=== PATIENT | male | born 1995 | race Two or more races ===

== ENCOUNTER 2017-06-04 11:05 | Inpatient (IN) | payer BC, MEDICAID ==
[~2017-06-04] VITALS: Ht 177.8 cm; Wt 77.2 kg
[2017-06-04] MEDS ORDERED: SODIUM CHLORIDE FLUSH 10ML SYR IVF ONE (11:30)
[2017-06-04] MEDS ORDERED: SODIUM CHLORIDE 0.9% 1,000ML IVBOLUS ONE (11:30)
[2017-06-04] MEDS ORDERED: ALBUTEROL/IPRATROPIUM 2.5MG/0.5MG, 3 ML NPPB ONE (11:30)
[2017-06-04] MEDS ORDERED: ALBUTEROL/IPRATROPIUM 2.5MG/0.5MG, 3 ML ONE (11:38)
[2017-06-04 12:19] LABS: BASOPHILS # (AUTO) 0.03 x10^3/uL (0-0.1); BASOPHILS % (AUTO) 0 % (0-1); EOSINOPHILS # (AUTO) 0.06 x10^3/uL (0-0.4); EOSINOPHILS % (AUTO) 1 % (1-7); LYMPHOCYTES # (AUTO) 0.89 x10^3/uL (1-3.4); LYMPHOCYTES % (AUTO) 10 % (22-44); MD NO; MEAN CORPUSCULAR HEMOGLOBIN 32.2 pg (27.5-34.5); MEAN CORPUSCULAR HGB CONC 34.3 g/dL (33.2-36.2); MEAN CORPUSCULAR VOLUME 93.6 fL (81-97); MEAN PLATELET VOLUME 7.3 fL (7.4-10.4); MONOCYTES # (AUTO) 0.97 x10^3/uL (0.2-0.8); MONOCYTES % (AUTO) 11 % (2-9); NEUTROPHILS # (AUTO) 7.06 x10^3/uL (1.8-6.8); NEUTROPHILS % (AUTO) 78 % (42-75); PLATELET COUNT 238 x10^3/uL (130-400); RED BLOOD COUNT 5.45 x10^6/uL (4.38-5.82); RED CELL DISTRIBUTION WIDTH 12.8 % (9.4-14.8)
[2017-06-04 12:26] LABS: ANION GAP 9 mmol/L (5-15); CALCIUM 9.1 mg/dL (8.5-10.1); CHLORIDE 105 mmol/L (98-107)
[2017-06-04 12:31] LABS: ALANINE AMINOTRANSFERASE 76 U/L (12-78); ALKALINE PHOSPHATASE 82 U/L (45-117); BILIRUBIN,TOTAL 0.7 mg/dL (0.2-1.0); CREATININE 0.17 mg/dL (0.7-1.3); TOTAL PROTEIN 9.1 g/dL (6.4-8.2)
[2017-06-04] MEDS ORDERED: CHOL2000 PO (13:37)
[2017-06-04] MEDS ORDERED: LISI-167 PO (13:38)
[2017-06-04] MEDS ORDERED: AZIT250T PO (13:38)
[2017-06-04] MEDS ORDERED: CARV3.122 PO (13:38)
[2017-06-04] MEDS ORDERED: D5%-0.45% NACL 1,000 ML IV SCH (13:49)
[2017-06-04] MEDS ORDERED: ONDANSETRON ODT 4 MG PO PRN (14:00)
[2017-06-04] MEDS ORDERED: ONDANSETRON 2MG/ML, 2ML IVPush PRN (14:00)
[2017-06-04] MEDS ORDERED: PIPERACILLIN/TAZO 3.375 GM in DEXTROSE 5% 50 ML IV ONE (14:00)
[2017-06-04] MEDS ORDERED: LABETALOL 5MG/ML, 20ML IVPush PRN (14:00)
[2017-06-04] MEDS ORDERED: OXYMETAZOLINE NASAL SPRAY 0.05%, 15ML ONE (14:14)
[2017-06-04] MEDS ORDERED: PIPERACILLIN/TAZO/PMX 3.375GM 50 ML ONE (14:17)
[2017-06-04] MEDS ORDERED: ASPIRIN 300 MG SUPP PR ONE (15:30)
[2017-06-04] MEDS ORDERED: ALBUTEROL SULFATE 2.5 MG/3 ML NPPB PRN (16:00)
[2017-06-04 16:08] LABS: TROPONIN I 0.032 ng/mL (0.000-0.045)
[2017-06-04] MEDS: AMPICILLIN/SULBACTAM 3 GM in SODIUM CHLORIDE 0.9% 100 ML IV SCH ×2 (17:08→23:17)
[2017-06-04] MEDS: ENOXAPARIN 40 MG/0.4 ML SQ SCH (17:20)
[2017-06-04] MEDS ORDERED: GUAI12009 PO (17:31)
[2017-06-04 17:32] VITALS: BP 99/63
[2017-06-04] MEDS: DOXYCYCLINE 100 MG in DEXTROSE 5% 250 ML IV SCH (18:23)
[2017-06-04 19:15] LABS: TROPONIN I 0.057 ng/mL (0.000-0.045)
[2017-06-04] MEDS: ALBUTEROL SULFATE 2.5 MG/3 ML NPPB SCH (20:00)
[2017-06-04 20:07] VITALS: BP 115/81
[2017-06-04] MEDS: D5%-0.45NACL+KCL 20MEQ 1,000 ML IV SCH (20:19)
[2017-06-05 00:39] VITALS: BP 102/67
[2017-06-05 05:21] LABS: BASOPHILS # (AUTO) 0.02 x10^3/uL (0-0.1); BASOPHILS % (AUTO) 0 % (0-1); EOSINOPHILS # (AUTO) 0.02 x10^3/uL (0-0.4); EOSINOPHILS % (AUTO) 0 % (1-7); LYMPHOCYTES # (AUTO) 0.95 x10^3/uL (1-3.4); LYMPHOCYTES % (AUTO) 10 % (22-44); MD NO; MEAN CORPUSCULAR HEMOGLOBIN 32.3 pg (27.5-34.5); MEAN CORPUSCULAR HGB CONC 34.9 g/dL (33.2-36.2); MEAN CORPUSCULAR VOLUME 92.6 fL (81-97); MEAN PLATELET VOLUME 7.4 fL (7.4-10.4); MONOCYTES # (AUTO) 0.99 x10^3/uL (0.2-0.8); MONOCYTES % (AUTO) 11 % (2-9); NEUTROPHILS % (AUTO) 78 % (42-75); PLATELET COUNT 265 x10^3/uL (130-400); RED BLOOD COUNT 4.46 x10^6/uL (4.38-5.82); RED CELL DISTRIBUTION WIDTH 12.8 % (9.4-14.8)
[2017-06-05 05:29] LABS: ALANINE AMINOTRANSFERASE 63 U/L (12-78); ALBUMIN 3.3 g/dL (3.4-5.0); ANION GAP 9 mmol/L (5-15); CALCIUM 8.1 mg/dL (8.5-10.1); CHLORIDE 109 mmol/L (98-107)
[2017-06-05 05:31] LABS: ALKALINE PHOSPHATASE 64 U/L (45-117); BILIRUBIN,TOTAL 0.4 mg/dL (0.2-1.0); CREATININE < 0.15 mg/dL (0.7-1.3); TOTAL PROTEIN 7.6 g/dL (6.4-8.2)
[2017-06-05] MEDS: DOXYCYCLINE 100 MG in DEXTROSE 5% 250 ML IV SCH ×2 (05:31→17:21)
[2017-06-05 05:39] LABS: TROPONIN I 0.088 ng/mL (0.000-0.045)
[2017-06-05] MEDS: AMPICILLIN/SULBACTAM 3 GM in SODIUM CHLORIDE 0.9% 100 ML IV SCH ×4 (06:46→23:43)
[2017-06-05] MEDS: ALBUTEROL SULFATE 2.5 MG/3 ML NPPB SCH ×2 (06:50→11:00)
[2017-06-05 09:24] VITALS: BP 124/61
[2017-06-05] MEDS: D5%-0.45NACL+KCL 20MEQ 1,000 ML IV SCH (10:59)
[2017-06-05 13:55] VITALS: BP 104/71
[2017-06-05 14:55] LABS: CLOSTRIDIUM DIFFICILE ANTIGEN NEGATIVE; CLOSTRIDIUM DIFFICILE TOXIN NEGATIVE (Negative)
[2017-06-05] MEDS ORDERED: ONDANSETRON 2MG/ML, 2ML IVPush PRN (15:26)
[2017-06-05] MEDS: ENOXAPARIN 40 MG/0.4 ML SQ SCH (17:21)
[2017-06-05] MEDS ORDERED: VANCOMYCIN PER PHARMACY MC PRN (18:00)
[2017-06-05] MEDS ORDERED: PHARMACOKINETIC MONITORING MC PRN (18:00)
[2017-06-05] MEDS ORDERED: PHARMACOKINETIC CONSULTATION MC ONE (18:00)
[2017-06-05] MEDS: VANCOMYCIN 1,500 MG in SODIUM CHLORIDE 0.9% 250 ML IV SCH (20:19)
[2017-06-05 20:48] VITALS: BP 102/70
[2017-06-06 03:39] VITALS: BP 91/61
[2017-06-06] MEDS: DOXYCYCLINE 100 MG in DEXTROSE 5% 250 ML IV SCH ×2 (04:21→18:04)
[2017-06-06] MEDS: AMPICILLIN/SULBACTAM 3 GM in SODIUM CHLORIDE 0.9% 100 ML IV SCH ×3 (06:17→19:39)
[2017-06-06] MEDS: VANCOMYCIN 1,500 MG in SODIUM CHLORIDE 0.9% 250 ML IV SCH ×2 (07:27→21:09)
[2017-06-06 08:00] VITALS: BP 98/68
[2017-06-06 11:31] LABS: BASOPHILS # (AUTO) 0.02 x10^3/uL (0-0.1); BASOPHILS % (AUTO) 0 % (0-1); EOSINOPHILS # (AUTO) 0.03 x10^3/uL (0-0.4); EOSINOPHILS % (AUTO) 0 % (1-7); LYMPHOCYTES # (AUTO) 1.05 x10^3/uL (1-3.4); LYMPHOCYTES % (AUTO) 10 % (22-44); MD NO; MEAN CORPUSCULAR HEMOGLOBIN 31.9 pg (27.5-34.5); MEAN CORPUSCULAR HGB CONC 34.4 g/dL (33.2-36.2); MEAN CORPUSCULAR VOLUME 92.8 fL (81-97); MEAN PLATELET VOLUME 6.8 fL (7.4-10.4); MONOCYTES # (AUTO) 0.84 x10^3/uL (0.2-0.8); MONOCYTES % (AUTO) 8 % (2-9); NEUTROPHILS # (AUTO) 8.49 x10^3/uL (1.8-6.8); NEUTROPHILS % (AUTO) 81 % (42-75); PLATELET COUNT 275 x10^3/uL (130-400); RED BLOOD COUNT 4.72 x10^6/uL (4.38-5.82)
[2017-06-06 11:37] LABS: ALBUMIN 3.4 g/dL (3.4-5.0); ANION GAP 8 mmol/L (5-15); CALCIUM 8.4 mg/dL (8.5-10.1); CHLORIDE 111 mmol/L (98-107); CREATININE 0.18 mg/dL (0.7-1.3)
[2017-06-06 14:00] VITALS: BP 114/82
[2017-06-06] MEDS ORDERED: POTASSIUM CHLORIDE 20 MEQ TAB.ER.PRT PO ONE ×2 (16:30→19:30)
[2017-06-06] MEDS: CARVEDILOL 3.125 MG TABLET PO SCH ×2 (18:03→18:26)
[2017-06-06] MEDS: ENOXAPARIN 40 MG/0.4 ML SQ SCH (18:04)
[2017-06-06 19:43] VITALS: BP 104/74
[2017-06-06] MEDS: ACETAMINOPHEN 325 MG TABLET PO PRN (21:40)
[2017-06-06] MEDS: LISINOPRIL 10 MG TABLET PO SCH (21:40)
[2017-06-07] MEDS: AMPICILLIN/SULBACTAM 3 GM in SODIUM CHLORIDE 0.9% 100 ML IV SCH ×4 (02:32→21:45)
[2017-06-07 04:00] VITALS: BP 91/61
[2017-06-07] MEDS: DOXYCYCLINE 100 MG in DEXTROSE 5% 250 ML IV SCH ×2 (06:18→18:18)
[2017-06-07] MEDS ORDERED: FENTANYL PF 100 MCG/2ML ONE (07:20)
[2017-06-07] MEDS ORDERED: MIDAZOLAM 1 MG/ML, 2ML ONE (07:20)
[2017-06-07 07:25] VITALS: BP 110/77
[2017-06-07 07:39] LABS: BASOPHILS # (AUTO) 0.02 x10^3/uL (0-0.1); BASOPHILS % (AUTO) 0 % (0-1); EOSINOPHILS # (AUTO) 0.07 x10^3/uL (0-0.4); EOSINOPHILS % (AUTO) 1 % (1-7); LYMPHOCYTES # (AUTO) 1.12 x10^3/uL (1-3.4); LYMPHOCYTES % (AUTO) 9 % (22-44); MD NO; MEAN CORPUSCULAR HEMOGLOBIN 32.1 pg (27.5-34.5); MEAN CORPUSCULAR HGB CONC 34.9 g/dL (33.2-36.2); MEAN PLATELET VOLUME 6.9 fL (7.4-10.4); MONOCYTES % (AUTO) 7 % (2-9); NEUTROPHILS # (AUTO) 10.38 x10^3/uL (1.8-6.8); NEUTROPHILS % (AUTO) 84 % (42-75); PLATELET COUNT 257 x10^3/uL (130-400); RED BLOOD COUNT 4.27 x10^6/uL (4.38-5.82); RED CELL DISTRIBUTION WIDTH 12.5 % (9.4-14.8)
[2017-06-07 07:40] LABS: ALBUMIN 3.1 g/dL (3.4-5.0); ANION GAP 10 mmol/L (5-15); CALCIUM 8.3 mg/dL (8.5-10.1); CHLORIDE 107 mmol/L (98-107)
[2017-06-07 08:04] LABS: CREATININE < 0.15 mg/dL (0.7-1.3)
[2017-06-07] MEDS: CARVEDILOL 3.125 MG TABLET PO SCH ×2 (08:59→20:07)
[2017-06-07] MEDS ORDERED: LISINOPRIL 10 MG TABLET PO SCH (09:00)
[2017-06-07] MEDS ORDERED: MORPHINE SULFATE 4 MG/ML, 1ML ONE ×2 (09:21)
[2017-06-07] MEDS: VANCOMYCIN 1,500 MG in SODIUM CHLORIDE 0.9% 250 ML IV SCH ×2 (09:44→22:51)
[2017-06-07] MEDS: ACETAMINOPHEN 325 MG TABLET PO PRN ×2 (12:12→19:59)
[2017-06-07 13:58] LABS: MICROSCOPIC NOT IND
[2017-06-07 14:02] LABS: CULTURE INDICATED? NO
[2017-06-07 14:52] VITALS: BP 100/62
[2017-06-07] MEDS: ENOXAPARIN 40 MG/0.4 ML SQ SCH (18:24)
[2017-06-07 19:19] VITALS: BP 98/62
[2017-06-07] MEDS: LISINOPRIL 10 MG TABLET PO SCH (22:25)
[2017-06-08 01:32] VITALS: BP 90/57
[2017-06-08] MEDS: AMPICILLIN/SULBACTAM 3 GM in SODIUM CHLORIDE 0.9% 100 ML IV SCH ×4 (03:47→19:43)
[2017-06-08] MEDS: DOXYCYCLINE 100 MG in DEXTROSE 5% 250 ML IV SCH (05:19)
[2017-06-08 07:08] VITALS: BP 90/54
[2017-06-08] MEDS: ACETAMINOPHEN 325 MG TABLET PO PRN ×2 (07:49→18:20)
[2017-06-08 07:52] LABS: BASOPHILS # (AUTO) 0.01 x10^3/uL (0-0.1); BASOPHILS % (AUTO) 0 % (0-1); EOSINOPHILS # (AUTO) 0.13 x10^3/uL (0-0.4); EOSINOPHILS % (AUTO) 1 % (1-7); LYMPHOCYTES # (AUTO) 1.41 x10^3/uL (1-3.4); LYMPHOCYTES % (AUTO) 11 % (22-44); MD NO; MEAN CORPUSCULAR HEMOGLOBIN 31.6 pg (27.5-34.5); MEAN CORPUSCULAR HGB CONC 34.3 g/dL (33.2-36.2); MEAN CORPUSCULAR VOLUME 92.1 fL (81-97); MEAN PLATELET VOLUME 6.6 fL (7.4-10.4); MONOCYTES # (AUTO) 0.99 x10^3/uL (0.2-0.8); MONOCYTES % (AUTO) 7 % (2-9); NEUTROPHILS # (AUTO) 10.86 x10^3/uL (1.8-6.8); NEUTROPHILS % (AUTO) 81 % (42-75); PLATELET COUNT 258 x10^3/uL (130-400); RED BLOOD COUNT 4.46 x10^6/uL (4.38-5.82); RED CELL DISTRIBUTION WIDTH 12.9 % (9.4-14.8)
[2017-06-08 08:04] LABS: ANION GAP 9 mmol/L (5-15); CALCIUM 8.7 mg/dL (8.5-10.1); CHLORIDE 107 mmol/L (98-107)
[2017-06-08 08:10] LABS: CREATININE < 0.15 mg/dL (0.7-1.3)
[2017-06-08] MEDS ORDERED: POTASSIUM CHLORIDE 20 MEQ TAB.ER.PRT PO ONE ×2 (08:30→11:30)
[2017-06-08] MEDS: CARVEDILOL 3.125 MG TABLET PO SCH ×2 (09:31→22:27)
[2017-06-08 09:32] VITALS: BP 104/73
[2017-06-08] MEDS: VANCOMYCIN 1,500 MG in SODIUM CHLORIDE 0.9% 250 ML IV SCH ×3 (11:09→23:19)
[2017-06-08] MEDS ORDERED: PNEUMOC 13-VALENT VACC, 0.5 ML IM-VACC ONE (13:00)
[2017-06-08 13:34] VITALS: BP 94/67
[2017-06-08] MEDS: DOXYCYCLINE 100MG TABLET PO SCH ×2 (17:23→22:27)
[2017-06-08] MEDS: ENOXAPARIN 40 MG/0.4 ML SQ SCH (17:23)
[2017-06-08 19:30] VITALS: BP 96/64
[2017-06-08] MEDS: LISINOPRIL 10 MG TABLET PO SCH (21:00)
[2017-06-09] MEDS: AMPICILLIN/SULBACTAM 3 GM in SODIUM CHLORIDE 0.9% 100 ML IV SCH ×4 (03:35→20:21)
[2017-06-09 03:36] VITALS: BP 101/69
[2017-06-09 05:20] LABS: BASOPHILS # (AUTO) 0.04 x10^3/uL (0-0.1); BASOPHILS % (AUTO) 0 % (0-1); EOSINOPHILS # (AUTO) 0.15 x10^3/uL (0-0.4); EOSINOPHILS % (AUTO) 1 % (1-7); LYMPHOCYTES # (AUTO) 1.37 x10^3/uL (1-3.4); LYMPHOCYTES % (AUTO) 12 % (22-44); MD NO; MEAN CORPUSCULAR HEMOGLOBIN 32.1 pg (27.5-34.5); MEAN CORPUSCULAR HGB CONC 34.8 g/dL (33.2-36.2); MEAN CORPUSCULAR VOLUME 92.3 fL (81-97); MEAN PLATELET VOLUME 7.1 fL (7.4-10.4); MONOCYTES # (AUTO) 0.76 x10^3/uL (0.2-0.8); MONOCYTES % (AUTO) 7 % (2-9); NEUTROPHILS # (AUTO) 8.81 x10^3/uL (1.8-6.8); NEUTROPHILS % (AUTO) 79 % (42-75); PLATELET COUNT 230 x10^3/uL (130-400); RED BLOOD COUNT 4.43 x10^6/uL (4.38-5.82); RED CELL DISTRIBUTION WIDTH 12.9 % (9.4-14.8)
[2017-06-09 05:33] LABS: CHLORIDE 107 mmol/L (98-107)
[2017-06-09 05:39] LABS: ALBUMIN 2.9 g/dL (3.4-5.0); ANION GAP 12 mmol/L (5-15); CALCIUM 8.5 mg/dL (8.5-10.1)
[2017-06-09 05:40] LABS: CREATININE < 0.15 mg/dL (0.7-1.3)
[2017-06-09] MEDS ORDERED: POTASSIUM CHLORIDE 20 MEQ TAB.ER.PRT PO ONE ×2 (07:00→11:00)
[2017-06-09] MEDS: DOXYCYCLINE 100MG TABLET PO SCH ×2 (08:24→20:21)
[2017-06-09] MEDS: CARVEDILOL 3.125 MG TABLET PO SCH ×2 (08:24→20:21)
[2017-06-09 08:30] VITALS: BP 108/68
[2017-06-09] MEDS: VANCOMYCIN 1,500 MG in SODIUM CHLORIDE 0.9% 250 ML IV SCH (11:42)
[2017-06-09] MEDS: ACETAMINOPHEN 325 MG TABLET PO PRN (14:59)
[2017-06-09] MEDS: ENOXAPARIN 40 MG/0.4 ML SQ SCH (17:07)
[2017-06-09 19:02] VITALS: BP 99/66
[2017-06-09] MEDS: LISINOPRIL 10 MG TABLET PO SCH (20:21)
[2017-06-10 01:34] VITALS: BP 91/57
[2017-06-10] MEDS: AMPICILLIN/SULBACTAM 3 GM in SODIUM CHLORIDE 0.9% 100 ML IV SCH ×3 (03:24→14:18)
[2017-06-10 05:06] LABS: ALBUMIN 2.3 g/dL (3.4-5.0); ANION GAP 9 mmol/L (5-15); CALCIUM 8.1 mg/dL (8.5-10.1); CHLORIDE 107 mmol/L (98-107)
[2017-06-10 05:16] LABS: CREATININE < 0.15 mg/dL (0.7-1.3)
[2017-06-10 05:17] LABS: BASOPHILS # (AUTO) 0.03 x10^3/uL (0-0.1); BASOPHILS % (AUTO) 0 % (0-1); EOSINOPHILS # (AUTO) 0.16 x10^3/uL (0-0.4); EOSINOPHILS % (AUTO) 1 % (1-7); LYMPHOCYTES # (AUTO) 1.28 x10^3/uL (1-3.4); LYMPHOCYTES % (AUTO) 11 % (22-44); MD NO; MEAN CORPUSCULAR HEMOGLOBIN 32.3 pg (27.5-34.5); MEAN CORPUSCULAR VOLUME 92.3 fL (81-97); MEAN PLATELET VOLUME 7.1 fL (7.4-10.4); MONOCYTES # (AUTO) 0.95 x10^3/uL (0.2-0.8); MONOCYTES % (AUTO) 8 % (2-9); NEUTROPHILS % (AUTO) 79 % (42-75); PLATELET COUNT 276 x10^3/uL (130-400); RED CELL DISTRIBUTION WIDTH 12.3 % (9.4-14.8)
[2017-06-10 07:49] VITALS: BP 94/60
[2017-06-10] MEDS ORDERED: POTASSIUM CHLORIDE 20 MEQ TAB.ER.PRT PO ONE (08:00)
[2017-06-10] MEDS: DOXYCYCLINE 100MG TABLET PO SCH ×2 (08:47→20:18)
[2017-06-10] MEDS: CARVEDILOL 3.125 MG TABLET PO SCH ×2 (08:48→20:18)
[2017-06-10 08:52] VITALS: BP 110/74
[2017-06-10] MEDS: ACETAMINOPHEN 325 MG TABLET PO PRN ×2 (12:10→18:10)
[2017-06-10 13:53] VITALS: BP 93/60
[2017-06-10] MEDS: CLINDAMYCIN PMX 600MG/50ML 50 ML IV SCH ×2 (16:00→23:15)
[2017-06-10] MEDS: ENOXAPARIN 40 MG/0.4 ML SQ SCH (16:03)
[2017-06-10 18:44] VITALS: BP 85/51
[2017-06-10] MEDS: LISINOPRIL 10 MG TABLET PO SCH (20:18)
[2017-06-11 03:00] VITALS: BP 112/68
[2017-06-11 04:33] LABS: BASOPHILS # (AUTO) 0.06 x10^3/uL (0-0.1); BASOPHILS % (AUTO) 1 % (0-1); EOSINOPHILS # (AUTO) 0.16 x10^3/uL (0-0.4); EOSINOPHILS % (AUTO) 1 % (1-7); LYMPHOCYTES # (AUTO) 1.56 x10^3/uL (1-3.4); LYMPHOCYTES % (AUTO) 12 % (22-44); MD NO; MEAN CORPUSCULAR HGB CONC 34.2 g/dL (33.2-36.2); MEAN CORPUSCULAR VOLUME 93.6 fL (81-97); MEAN PLATELET VOLUME 6.8 fL (7.4-10.4); MONOCYTES # (AUTO) 1.03 x10^3/uL (0.2-0.8); MONOCYTES % (AUTO) 8 % (2-9); NEUTROPHILS # (AUTO) 10.16 x10^3/uL (1.8-6.8); NEUTROPHILS % (AUTO) 78 % (42-75); PLATELET COUNT 300 x10^3/uL (130-400); RED CELL DISTRIBUTION WIDTH 12.8 % (9.4-14.8)
[2017-06-11 04:37] LABS: ALBUMIN 2.5 g/dL (3.4-5.0); ANION GAP 9 mmol/L (5-15); CALCIUM 8.2 mg/dL (8.5-10.1); CHLORIDE 104 mmol/L (98-107); CREATININE < 0.15 mg/dL (0.7-1.3)
[2017-06-11 06:32] VITALS: BP 84/50
[2017-06-11] MEDS ORDERED: POTASSIUM CHLORIDE 20 MEQ TAB.ER.PRT PO ONE ×2 (07:00→10:00)
[2017-06-11] MEDS: DOXYCYCLINE 100MG TABLET PO SCH ×2 (08:35→21:15)
[2017-06-11] MEDS: CLINDAMYCIN PMX 600MG/50ML 50 ML IV SCH (08:35)
[2017-06-11] MEDS: CARVEDILOL 3.125 MG TABLET PO SCH ×2 (08:37→21:16)
[2017-06-11] MEDS ORDERED: CLINDAMYCIN PMX 900MG/50ML 50 ML IV SCH (11:00)
[2017-06-11 12:40] VITALS: BP 96/56
[2017-06-11] MEDS: ACETAMINOPHEN 325 MG TABLET PO PRN (13:33)
[2017-06-11] MEDS: ENOXAPARIN 40 MG/0.4 ML SQ SCH (17:35)
[2017-06-11] MEDS: CLINDAMYCIN 300 MG CAPSULE PO SCH (18:18)
[2017-06-11 19:52] VITALS: BP 85/50
[2017-06-11] MEDS: LISINOPRIL 10 MG TABLET PO SCH (21:00)
[2017-06-12] MEDS: CLINDAMYCIN 300 MG CAPSULE PO SCH ×3 (00:18→13:44)
[2017-06-12] MEDS: ONDANSETRON ODT 4 MG PO PRN ×2 (00:43→06:25)
[2017-06-12] MEDS ORDERED: CALCIUM CARBONATE 500 MG TAB.CHEW PO PRN (01:30)
[2017-06-12 02:20] VITALS: BP 84/49
[2017-06-12 06:18] LABS: BASOPHILS # (AUTO) 0.02 x10^3/uL (0-0.1); BASOPHILS % (AUTO) 0 % (0-1); EOSINOPHILS # (AUTO) 0.19 x10^3/uL (0-0.4); EOSINOPHILS % (AUTO) 2 % (1-7); LYMPHOCYTES # (AUTO) 1.27 x10^3/uL (1-3.4); LYMPHOCYTES % (AUTO) 15 % (22-44); MD NO; MEAN CORPUSCULAR HEMOGLOBIN 31.1 pg (27.5-34.5); MEAN CORPUSCULAR HGB CONC 33.6 g/dL (33.2-36.2); MEAN CORPUSCULAR VOLUME 92.6 fL (81-97); MEAN PLATELET VOLUME 6.6 fL (7.4-10.4); MONOCYTES # (AUTO) 0.81 x10^3/uL (0.2-0.8); MONOCYTES % (AUTO) 9 % (2-9); NEUTROPHILS # (AUTO) 6.46 x10^3/uL (1.8-6.8); NEUTROPHILS % (AUTO) 74 % (42-75); PLATELET COUNT 323 x10^3/uL (130-400); RED BLOOD COUNT 3.98 x10^6/uL (4.38-5.82); RED CELL DISTRIBUTION WIDTH 12.9 % (9.4-14.8)
[2017-06-12 06:25] LABS: ALBUMIN 2.3 g/dL (3.4-5.0); ANION GAP 8 mmol/L (5-15); CALCIUM 8.5 mg/dL (8.5-10.1); CHLORIDE 106 mmol/L (98-107)
[2017-06-12 06:29] LABS: CREATININE < 0.15 mg/dL (0.7-1.3)
[2017-06-12 07:56] VITALS: BP 87/48
[2017-06-12] MEDS: CARVEDILOL 3.125 MG TABLET PO SCH (07:58)
[2017-06-12] MEDS: LACTOBACILLUS CHEW TABLET PO SCH ×2 (07:58→16:21)
[2017-06-12] MEDS: DOXYCYCLINE 100MG TABLET PO SCH (07:58)
[2017-06-12] MEDS ORDERED: MAALOX/HYOSCYAMINE/LIDOCAINE 45 ML BTL PO ONE (10:00)
[2017-06-12] MEDS ORDERED: SODIUM CHLORIDE 0.9%, 500ML IVBOLUS ONE (10:00)
[2017-06-12] MEDS ORDERED: SODIUM CHLORIDE 0.9% 1,000 ML IV SCH (10:00)
[2017-06-12] MEDS ORDERED: OMEPRAZOLE 20 MG CAPSULE.DR PO SCH (10:00)
[2017-06-12 13:53] VITALS: BP 102/71
[2017-06-12] MEDS ORDERED: CLIN300C8 PO (14:53)
[2017-06-12 16:25] VITALS: BP 89/56
== END 2017-06-12 18:40 | disposition home or self-care (01) | DRG 177 ==
LOC: ED 12:43 → EDIP 13:31 → 4WST 15:10 → 5SO 16:16 → 4WST 06-09 15:44
PROVIDERS: ADMIT Hospitalist; ATTEND Hospitalist
DX: J69.0 Pneumonitis due to inhalation of food and vomit (principal); R53.2 Functional quadriplegia; E43 Unspecified severe protein-calorie malnutrition; G71.0 Muscular dystrophy; R78.81 Bacteremia; J44.0 Chronic obstructive pulmonary disease with (acute) lower respiratory infection; B95.7 Other staphylococcus as the cause of diseases classified elsewhere; T36.0X5A Adverse effect of penicillins, initial encounter; R50.2 Drug induced fever; D64.9 Anemia, unspecified; E87.6 Hypokalemia; G47.30 Sleep apnea, unspecified; G70.9 Myoneural disorder, unspecified; I51.7 Cardiomegaly; J98.4 Other disorders of lung; Z80.0 Family history of malignant neoplasm of digestive organs; Z80.3 Family history of malignant neoplasm of breast; Z83.3 Family history of diabetes mellitus; Z87.01 Personal history of pneumonia (recurrent); Z99.3 Dependence on wheelchair; Z23 Encounter for immunization; Z68.24 Body mass index [BMI] 24.0-24.9, adult
CPT/HCPCS: 36415; 71045; 74230; 80048; 80053; 80202; 81003; 82040; 83605; 83735; 83880; 84100; 84145; 84439; 84443; 84484; 85025; 87040; 87070; 87081; 87205; 87324; 93005; 93306; 94010; 94150; 94640; 94667; 94668; 96365; J0295; J1650; J2250; J2543; J3010; J3370; J7060; J7613; J7620; Q0162; G0009; J3480; J7030; J7040; J7050